=== PATIENT | male | born 1995 | race Caucasian/White ===

== ENCOUNTER 2020-11-05 15:26 | Emergency (ER) | payer OTHER ==
[~2020-11-05] VITALS: Ht 167.6 cm; Wt 93.2 kg
--- NOTE | 2020-11-05 16:39 | REP ---
INDICATION: low back pain s/p bending/lifting COMPARISON: None. TECHNIQUE: AP, lateral, bilateral oblique, and coned-down views of the lumbar spine. FINDINGS: Alignment and lordosis maintained. Vertebral bodies are intact. Disc spaces are relatively normal/age-appropriate. No acute fracture/compression injury or subluxation. No obvious spondylolysis or spondylolisthesis.. IMPRESSION: Normal Lumbosacral Spine series. <Electronically signed by Seth Gordon > 11/05/20 8441
[2020-11-05] MEDS ORDERED: METH-1165 PO (17:01)
[2020-11-05 17:37] VITALS: BP 125/68
== END 2020-11-05 17:38 | disposition home or self-care (01) ==
LOC: M ED 15:26
DX: S39.012A Strain of muscle, fascia and tendon of lower back, initial encounter (principal); X58.XXXA Exposure to other specified factors, initial encounter; Y92.89 Other specified places as the place of occurrence of the external cause; Y93.89 Activity, other specified; Y99.1 Military activity